=== PATIENT | female | born 1945 | race Caucasian/White ===

== ENCOUNTER 2021-11-09 11:56 | Observation (INO) ==
[2021-11-09] MEDS ORDERED: LIDOCAINE 1% LOCAL 20 ML VIAL ONE (12:35)
[2021-11-09] MEDS ORDERED: BACITRACIN OINT 0.9 GM PKT ONE (12:35)
[2021-11-09] MEDS ORDERED: VANCOMYCIN HCL 1000MG/20ML VIAL ONE (12:36)
[2021-11-09] MEDS ORDERED: WATER, STERILE FOR INJ 10 ML VIAL ONE (12:36)
--- NOTE | 2021-11-09 13:25 | History & Physical Bridge Note ---
Date of Service November 09, 2021 History & Physical Bridge Note I have examined the patient, reviewed the History & Physical and in the interval since the performance of the History & Physical I have noted the following changes of clinical significance: no changes noted. I reviewed the indications, procedure, risks and alternatives with the patient, answered all questions. Consent obtained. Patient understands and agrees to the procedure. I also reviewed the risks and use of sedation, patient understands and consent obtained.
--- NOTE | 2021-11-09 13:26 | Pre Anesthesia Assessment ---
Date of Service November 09, 2021 Pre Sedation Assessment Vital Signs Temp Pulse Resp BP Pulse Ox 11/09/21 12:18 36.7 C 95 H 20 107/86 98 Cardiovascular RRR, no murmur, no edema Respiratory normal respiratory effort, lungs clear to auscultation Pre-Sedation Airway Assessment Smoking Status: Former smoker Hx Sleep Apnea: No Short, Thick Neck: No Thyromental Distance: > or= 3.5 Finger Breadths Oral Cavity: + Dentures Mallampati Class: III ASA: ASA3 NPO Status Date of Last Intake of Fluids: 11/08/21 Date of Last Intake of Solid Food: 11/08/21 Procedure Planning Contraindications for Sedation: none Current Medications Reviewed: Yes Notes The planned sedation has been discussed with the patient. Informed Consent was obtained. I have identified the patient, determined the appropriateness of sedation and have assessed the patient immediately prior to the procedure. All medicine(s) and interventions are by my order.
[2021-11-09] MEDS ORDERED: ceFAZolin 330 MG/ML 1 GM VIAL ONE (13:29)
[2021-11-09] MEDS ORDERED: fentaNYL citrate 100 MCG/2 ML VIAL ONE ×2 (13:29→14:14)
[2021-11-09] MEDS ORDERED: MIDAZOLAM HCL 5 MG/ML 1 ML VIAL ONE (13:29)
[2021-11-09] MEDS ORDERED: MIDAZOLAM HCL 1 MG/ML 2ML VIAL ONE (14:14)
--- NOTE | 2021-11-09 15:02 | Electrophysiology Report ---
Date of Service November 09, 2021 Electrophysiology Procedure Electrophysiology Procedure Report Preoperative diagnosis: Left subclavian venogram Cardiomyopathy, left ventricular ejection fraction to 30 to 35% Postoperative diagnosis: Same Procedure: Dual-chamber ICD implantation Surgeon: Aries Mclean MD Estimated blood loss: 20 cc Complications: None Disposition: Cardiology recovery Procedure details: After obtaining informed consent for the procedure, the patient was brought to the laboratory and prepped and draped in the standard sterile manner. The left prepectoral region was anesthetized with 1% lidocaine local anesthetic and left axillary venipuncture was performed by percutaneous technique and a guidewire placed through the left subclavian vein into the superior vena cava. The area was further infiltrated with 1% lidocaine local anesthetic and a 7 cm incision was made parallel to the left clavicle and 2 cm below it and carried down to the anterior pectoralis fascia. An ICD pocket was formed by blunt dissection anterior to the pectoralis fascia and a vancomycin soaked sponge was placed in the pocket. A 10.5 Spanish Med[employer] lead introducer was placed over the guidewire into the left subclavian vein, the dilator and guidewire were removed and a bipolar dual coil active fixation steroid tipped ventricular ICD lead was advanced through the introducer into the superior vena cava. A guidewire was placed through the introducer and the introducer was stripped from the lead and guidewire. An 8 Spanish Medtronic lead introducer was placed over the guidewire into the left subclavian vein, the dilator and guidewire were removed and a bipolar active fixation steroid tipped atrial lead was advanced through the introducer into the superior vena cava. A guidewire was placed back through the introducer and the introducer was stripped from the lead and guidewire. Using a curved stylette the ventricular lead was advanced through the right ventricular outflow tract into the pulmonary artery and then using a straight stylette was positioned in the right ventricular apex. The screw was extended fixing the lead in position. Pacing and sensing thresholds were evaluated in bipolar configuration and are recorded on the implant data sheet. Using a curved stylette the atrial lead was positioned in the region of the atrial appendage and the screw extended fixing the lead in position. Sensing thresholds were evaluated in bipolar configuration and are recorded on the implant data sheet. Once the leads were in position they were attached to the anterior pectoralis fascia using 2 sutures of 2-0 silk around each lead collar. The vancomycin soaked sponge was removed from the pocket, hemostasis was obtained, the ICD was attached to the leads and placed in the pocket with the leads coiled beneath it. The incision was closed with a running double subcutaneous closure of 3-0 Vicryl absorbable suture, followed by running subcuticular skin closure of 4-0 Vicryl absorbable suture. Bacitracin ointment was placed on the incision and a dressing applied. [facility] [place] codes Indication for Procedure (1) Cardiomyopathy: (2) Syncope: ICD Procedure 1: ICD: 73363 Insert single or dual ICD system Miscellaneous Procedures Procedure 1: EP Miscellaneous: 25461 Contrast injection for venography Procedure 2: EP Miscellaneous: 80837-02 Vengraphy, extremity PG Moderate Sedation Codes Moderate Sedation Codes Procedure 1: Sedation/Anesthesia: 48531 Mod Sedation by the same physician;Init15 Min Child Age 5 & Up Procedure 2: Sedation/Anesthesia: 72958 Mod Sedation by the same physician; Ea [id number] Minutes
[2021-11-09] MEDS ORDERED: ACETAMINOPHEN W/CODEINE #3 1 TAB PO PRN (15:08)
[2021-11-09] MEDS ORDERED: ACETAMINOPHEN 325 MG TAB PO PRN (15:08)
[2021-11-09] MEDS: METOPROLOL TARTRATE 25 MG TAB PO SCH (16:26)
[2021-11-10] MEDS: METOPROLOL TARTRATE 25 MG TAB PO SCH (03:52)
[2021-11-10 06:58] VITALS: PULSE 65; TEMP 98.1; O2SAT 96
--- NOTE | 2021-11-10 08:36 | Post Anesthesia Assessment ---
Date of Service November 10, 2021 Post Sedation Assessment Vital Signs Temp Pulse Pulse Resp BP BP Pulse Ox 11/10/21 06:58 36.7 C 65 16 120/74 96 11/10/21 03:48 68 111/72 11/10/21 03:17 36.8 C 77 16 138/80 93 11/09/21 23:00 36.6 C 82 18 124/68 94 11/09/21 22:20 62 11/09/21 19:00 36.4 C L 72 16 106/62 95 11/09/21 17:28 36.6 C 67 18 100/64 94 11/09/21 16:30 36.4 C L 70 18 110/71 95 11/09/21 16:10 36.2 C L 58 L 16 104/70 95 11/09/21 15:31 60 16 110/68 96 11/09/21 15:15 69 16 95/68 L 98 11/09/21 15:00 74 16 99/60 L 98 11/09/21 12:18 36.7 C 95 H 20 107/86 98 Recovery Score Activity: Moves 4 extremities Respiration: Deep Breath/Cough Circulation: +/-20% PreAnes Value Consciousness: Fully Awake Oxygen Saturation: > 92% On Room Air Post Anesthesia Score: 10 Discharge Sedation Level of Care: Fast Track Phase II Post Sedation Plan On clinical assessment, the patient appears to have tolerated the sedation without complications. Patient is recovering as anticipated. Patient will continue to be monitored by nursing and may be discharged when sedation discharge criteria are met per below protocol. Upon Completions of procedure up to 15 minutes continue every 5 minute vital signs and the P.A.R. score; then discharge to a Phase I or Fast Track to Phase II per the following guidelines: * Discharge Patient to appropriate Phase II area if PAR is 8 or greater or return to pre- procedure baseline. The post - procedure orders will be as directed. * If PAR score is less than 8 or not return to pre-procedure baseline then patient will follow Phase I monitoring till PAR is reached for Phase II. The Phase I may be done in procedure room or may call to secure a Phase I area. * If naloxone or flumazenil are used for reversal, hold in Phase I for continued monitoring from when last reversal dose was given for a minimum of 60 minutes or longer pending the nurse and/or physician discretion of patient condition before discharge to Phase II. Please call the Sedation Physician to re-evaluate and complete post-note for discharge to Phase II area. Do NOT discharge from procedure sedation or Phase 1 until post- sedation evaluation note is complete by procedure /sedation MD Sedation Discharge Instructions to be given to the patient at discharge to home.
[2021-11-10] MEDS ORDERED: MULTIVITAMIN TAB PO SCH (09:00)
[2021-11-10] MEDS ORDERED: LEVOTHYROXINE SODIUM 100 MCG TABLET PO SCH (09:00)
[2021-11-10] MEDS ORDERED: TRIAMTERENE/HCTZ 37.5/25MG TAB PO SCH (09:00)
[2021-11-10] MEDS ORDERED: FOLIC ACID 1 MG TAB PO SCH (09:00)
--- NOTE | 2021-11-10 10:05 | Cardiology Progress Note ---
Date of Service November 10, 2021 Assessment & Plan (1) Status post implantation of automatic cardioverter/defibrillator (AICD): Plan: Postop day #1: The device is working well, the site looks good and she feels well. Admission and Anticipated Discharge Date Admission Date: November 09, 2021 Subjective Feeling well post pacemaker implantation yesterday. Minimal incisional discomfort, no chest discomfort or shortness of breath. No lightheadedness or dizziness. Physical Exam Physical Exam: The pacemaker site is clean and dry, there is some ecchymosis but no swelling or drainage. Lungs are clear Cardiac rhythm is regular with no rub Results & Data ([facility]) Vital Signs (Past 12 Hours) Vital Signs Temp Pulse Pulse Resp BP BP Pulse Ox 11/10/21 06:58 36.7 C 65 16 120/74 96 11/10/21 03:48 68 111/72 11/10/21 03:17 36.8 C 77 16 138/80 93 11/09/21 23:00 36.6 C 82 18 124/68 94 11/09/21 22:20 62 Diagnostic Findings Postop ECG: Atrial flutter with some intrinsic conduction and some appropriate ventricular pacing Telemetry: Atrial flutter with intermittent ventricular pacing appropriately ICD evaluation: Excellent pacing and sensing characteristics. Chest x-ray: PG Care Time/CCT Total # of Minutes Spent Total Time Spent with Patient: Total time spent is greater than 50% in coordination of care (as documented) at patient's floor/unit and/or counseling patient: Coding Diagnoses Status post implantation of automatic cardioverter/defibrillator (AICD) Z95.810
[2021-11-10 10:21] VITALS: BP 138/80
--- NOTE | 2021-11-10 11:42 | XRay Report ---
XR chest 2V PA/lateral HISTORY: Postop. Left-sided pacemaker/defibrillator placement. EXACT TIME ORDERED Evaluate for pneum othorax and l COMPARISON: Chest 05/06/2021. FINDINGS: Interval placement left-sided dual-chamber pacemaker/defibrillator. The leads appear intact . No pneumothorax. No pleural effusions. The heart is normal in size. No focal lung consolidations to suggest pneumonia. No evidence for pulmonary edema. IMPRESSION: Interval placement left-sided pacemaker/defibrillator. No pneumothorax. ACT 112: Negative or not required by law. Electronically signed by: Magdi Vazquez M.D. 11/10/2021 11:41 AM
--- NOTE | 2021-11-10 13:35 | Electrocardiogram Report ---
Test Reason : Blood Pressure : / mmHG Vent. Rate : 074 BPM Atrial Rate : 234 BPM P-R Int : 000 ms QRS Dur : 184 ms QT Int : 512 ms P-R-T Axes : 000 -72 080 degrees QTc Int : 568 ms Atrial flutter Ventricular-paced rhythm with premature ventricular or aberrantly conducted complexes Abnormal ECG Confirmed by Faizan Moscoso ([id number]) on 11/11/2021 5:03:39 PM Referred By: Suzan Juares Confirmed By:Carl Moscoso
--- NOTE | 2021-11-11 08:32 | Electrocardiogram Report ---
Test Reason : Blood Pressure : / mmHG Vent. Rate : 064 BPM Atrial Rate : 242 BPM P-R Int : 000 ms QRS Dur : 090 ms QT Int : 472 ms P-R-T Axes : 086 004 -24 degrees QTc Int : 486 ms Poor data quality, interpretation may be adversely affected Atrial flutter with variable A-V block with frequent ventricular-paced complexes Nonspecific ST and T wave abnormality Prolonged QT Abnormal ECG When compared with ECG of 06-MAY-2021 17:10, Electronic ventricular pacemaker has replaced Atrial flutter Confirmed by Faizan Moscoso ([id number]) on 11/10/2021 1:35:42 PM Also confirmed by Faizan Moscoso ([id number]), telegraph editor Lobo Oropeza ([id number]) on 11/11/2021 8:31:40 AM Referred By: Suzan Juares Confirmed By:Carl Moscoso
[2021-11-14] MEDS ORDERED: ALENDRONATE SODIUM 70 MG TAB PO SCH (09:00)
== END 2021-11-10 12:15 | disposition home or self-care (01) ==
LOC: 2S 11:56 → EP 11:56
PROC: EPB.ICD (2021-11-09 13:00)